=== PATIENT | female | born 1960 | race African-American/Black ===

== ENCOUNTER 2020-05-22 10:32 | Emergency (ER) | payer OTHER, SELFPAY ==
[~2020-05-22] VITALS: Ht 177.8 cm; Wt 81.0 kg
[2020-05-22] MEDS ORDERED: FAMOTIDINE 20MG/2ML VIAL IV STA (10:48)
[2020-05-22] MEDS ORDERED: ONDANSETRON HCL 4MG/2ML INJ IV STA (10:48)
[2020-05-22] MEDS ORDERED: SODIUM CHLORIDE 0.9% 1,000 ML IV ONE (11:00)
[2020-05-22 12:57] LABS: BASOPHILS % 0.1 % (0.0-2.0); EOSINOPHILS % 0.1 % (0.0-5.0); HEMATOCRIT. 30.2 % (36.0-48.0); HEMOGLOBIN. 9.8 g/dL (12.0-16.0); LYMPHOCYTES % 11.1 % (20.0-50.0); MEAN CORPUSCULAR VOLUME 83.4 fL (81.0-99.0); MEAN PLATELET VOLUME 9.3 fl (7.4-10.4); MONOCYTES % 5.4 % (2.0-8.0); NEUTROPHILS % 83.3 % (40.0-76.0); PLATELET 152 x1000/uL (130-400); RED BLOOD CELL COUNT 3.62 mill/uL (4.2-5.4); RED CELL DISTRIBUTION WIDTH 15.5 % (11.6-14.6)
[2020-05-22 12:58] LABS: CHLORIDE 108 mEq/L (98-107)
[2020-05-22 13:01] LABS: INR 1.2; PROTHROMBIN TIME 12.4 sec (9.6-11.0)
[2020-05-22 14:16] VITALS: BP 110/73
[2020-05-22 15:02] LABS: CLARITY URINE CLEAR (CLEAR); COLOR URINE DARK YELLOW (YELLOW); KETONES URINE 3+ (NEGATIVE); LEUKOCYTE ESTERASE URINE 1+ (NEGATIVE); NITRITE URINE POSITIVE (NEGATIVE); OCCULT BLOOD URINE NEGATIVE (NEGATIVE); PROTEIN URINE TRACE (NEGATIVE); SPECIFIC GRAVITY URINE 1.028 (1.005-1.030)
[2020-05-22] MEDS ORDERED: MORPHINE SULFATE 4 MG/ML CPJ (NOT FOR IM USE) IV ONE (15:15)
[2020-05-22] MEDS ORDERED: CEFTRIAXONE 1 G PREMIX 50 ML IV ONE (15:15)
[2020-05-22] MEDS ORDERED: KETOROLAC 30MG/ML VIAL IV ONE (15:15)
[2020-05-22 16:01] LABS: CHLORIDE 108 mEq/L (98-107)
[2020-05-22 16:10] LABS: HCG SCREEN NEGATIVE
== END 2020-05-22 17:39 | disposition home or self-care (01) ==
LOC: ER 10:39
DX: N39.0 Urinary tract infection, site not specified (principal); R10.9 Unspecified abdominal pain; R19.7 Diarrhea, unspecified; J45.909 Unspecified asthma, uncomplicated; Z03.818 Encounter for observation for suspected exposure to other biological agents ruled out
CPT/HCPCS: 36415; 71045; 80048; 80053; 81003; 83690; 84484; 84703; 85025; 85610; 93005; 96361; 96374; 96375; 99285; C9803; J0696; J1885; J2405; J3490; J7030; U0003